=== PATIENT | female | born 1970 | race Caucasian/White ===

== ENCOUNTER → 2020-01-20 09:54 | Outpatient (CLI) | payer BC, SELFPAY ==
--- NOTE | ~2020-01-20 | MM_ITS ---
EXAMINATION: MM screening [facility] [place] BI w sandra HISTORY: Screening mammogram TECHNIQUE: Craniocaudal and mediolateral oblique 3-D tomosynthesis images were obtained and synthetic 2-D images were generated. CAD analysis was submitted and interpreted. COMPARISON: 12/21/2016, 07/01/2015, 09/11/2013, 09/03/2013 BREAST PARENCHYMAL COMPOSITION: There are scattered areas of fibroglandular density. FINDINGS: Scattered benign-appearing calcifications are present. There is no evidence of suspicious m ass, calcification, or architectural distortion to suggest malignancy in either breast. There has bee n no suspicious interval change. IMPRESSION: 1. No mammographic evidence of malignancy. 2. Recommend routine screening mammography in one year. BI-RADS Category 2: Benign finding(s). Reviewed, dictated and finalized at location A.
== END ==
PROVIDERS: Visit Provider Nurse Practitioner Family
DX: Z12.31 Encounter for screening mammogram for malignant neoplasm of breast (principal)
CPT/HCPCS: 77063; 77067

== ENCOUNTER → 2021-03-11 10:11 | Outpatient (CLI) | payer BC, SELFPAY ==
--- NOTE | ~2021-03-11 | MM_ITS ---
EXAMINATION: MM screening [facility] BI w sandra HISTORY: Screening TECHNIQUE: Craniocaudal and mediolateral oblique 3-D tomosynthesis images were obtained and synthetic 2-D images were generated. CAD analysis was submitted and interpreted. COMPARISON: Comparison to multiple prior studies sequentially, with oldest reviewed study dated 06/10. BREAST PARENCHYMAL COMPOSITION: There are scattered areas of fibroglandular density. FINDINGS: There are innumerable benign calcifications in both breasts. There is no evidence of suspic ious mass, calcification, or architectural distortion to suggest malignancy in either breast. There h as been no suspicious interval change. IMPRESSION: 1. No mammographic evidence of malignancy. 2. Recommend routine screening mammography in one year. BI-RADS Category 2: Benign finding(s). Reviewed, dictated and finalized at location A.
== END ==
PROVIDERS: PCP Nurse Practitioner; Visit Provider Nurse Practitioner
DX: Z12.31 Encounter for screening mammogram for malignant neoplasm of breast (principal)
CPT/HCPCS: 77063; 77067

== ENCOUNTER 2022-03-16 12:35 | Emergency (ER) | payer BC, SELFPAY ==
--- NOTE | ~2022-03-16 | CT_ITS ---
EXAMINATION: CT pelvis wo con DATE: 03/16/2022 13:15 INDICATION: Right hip pain post fall TECHNIQUE: High resolution computed tomography (CT) of the pelvis was performed without intravenous c ontrast. Additional sagittal and coronal reconstructions were performed. Automated exposure control a nd iterative reconstruction technique were employed. The dose-length product was 464.50 mGy-cm. COMPARISON: Radiographs dated 10/01/2015 FINDINGS: There is now a noncemented right total hip arthroplasty which appears well seated in near-anatomic al ignment. No fracture or periprosthetic lucency to suggest loosening or infection. Moderate osteoarthr itis at the left hip. No evident hip joint effusions. There is partial ankylosis across the bilateral sacroiliac joints. Is also mild osteitis pubis. Small fat-containing left inguinal hernia. Mild vent ral diastases deep to the umbilicus. Visualized portions of the bowels including the appendix are nor mal. Partially decompressed bladder is unremarkable. There is somewhat nodular contour to the anterio r margin of the fundus of the anteverted uterus suggesting possible uterine fibroids. No free intrape ritoneal fluid in the visualized pelvis. No pathologically enlarged pelvic or inguinal lymphadenopath y. IMPRESSION: 1. Right total hip arthroplasty in near-anatomic alignment. No acute osseous abnormality. Reviewed, dictated and finalized at location A. IMPRESSION: 1. Right total hip arthroplasty in near-anatomic alignment. No acute osseous ab normality.
--- NOTE | ~2022-03-16 | CT_ITS ---
EXAMINATION: CT cervical spine wo con DATE: 03/16/2022 13:15 INDICATION: Head injury. TECHNIQUE: Computed tomography (CT) of the cervical spine was performed without intravenous contrast. Automated exposure control and iterative reconstruction technique were employed. The dose-length pro duct was 367.47 mGy-cm. COMPARISON: None FINDINGS: There is 3 degrees dextrocurvature of cervical spine. There is 2 mm anterolisthesis of C4 o n C5, C5 on C6, and C7 on T1. There is. Vertebral body heights are normal. There is mildly mildly dec reased disc height from C2-C3 through C4-C5. There is severely decreased disc height at C5-C6 with in terbody fusion. There is severely decreased disc height at C6-C7 and moderately decreased disc height at C7-T1. The following disc levels are specifically discussed: C2-C3: There is no uncovertebral joint osteoarthritis. There is moderate right and mild left facet maru int osteoarthritis. There is mild right neural foraminal stenosis. There is no central canal stenosis . C3-C4: There is no uncovertebral joint osteoarthritis. There is severe bilateral facet joint osteoart hritis. There is mild bilateral neural foraminal stenosis. There is mild central canal stenosis. C4-C5: There is mild bilateral uncovertebral joint osteoarthritis. There is severe bilateral facet maru int osteoarthritis. There is mild right and moderate left neural foraminal stenosis. There is mild ce ntral canal stenosis. C5-C6: There is mild right and moderate left uncovertebral joint hypertrophy. There is ankylosis of t he facet joints with moderate hypertrophy. There is mild bilateral neural foraminal stenosis. There i s moderate central canal stenosis. C6-C7: There is severe bilateral uncovertebral joint osteoarthritis. There is mild right and severe l eft facet joint osteoarthritis. There is mild right and moderate left neural foraminal stenosis. Ther e is moderate central canal stenosis. C7-T1: There is mild bilateral uncovertebral joint osteoarthritis. There is severe bilateral facet maru int osteoarthritis. There is mild right and moderate left neural foraminal stenosis. There is mild ce ntral canal stenosis. IMPRESSION: 1. No fracture. 2. Severe cervical spondylosis. Reviewed, dictated and finalized at location A.
--- NOTE | ~2022-03-16 | CT_ITS ---
EXAMINATION: CT brain wo con INDICATION: Head injury COMPARISON: None TECHNIQUE: Standard unenhanced head CT. The dose-length product (DLP) was 681.00 mGy-cm. The mA was a djusted according to patient size. Iterative reconstruction technique was employed. FINDINGS: There is a left frontal scalp hematoma. There is no intracranial hemorrhage, acute infarcti on, or abnormal mass lesion. The ventricles are normal. There is no abnormal mass effect or midline s hift. The sampson-white matter differentiation is normal. The basal cisterns are patent. The orbits are normal. There are widespread calcifications in the skin of the scalp. The paranasal sinuses, mastoids and calvarium are normal. IMPRESSION: 1. Left frontal scalp hematoma without acute intracranial abnormality. Reviewed, dictated and finalized at location B.
--- NOTE | ~2022-03-16 | XR_ITS ---
EXAMINATION: XR chest 1V portable DATE: 03/16/2022 14:07 INDICATION: Dizziness. Fall. TECHNIQUE: frontal view of the chest was obtained. COMPARISON: None FINDINGS: Small calcified nodule at the medial left lung base consistent with old granulomatous disease. No oth er airspace opacities, pulmonary edema, pleural effusion or pneumothorax. The cardiomediastinal silho uette is normal. Subtle dystrophic calcific lesion along the middle facet of the right greater tubero sity suspicious for right infraspinatus calcific tendinitis. IMPRESSION: 1. No acute cardiopulmonary disease. Reviewed, dictated and finalized at location A.
[2022-03-16 12:38] VITALS: BP 139/78; PULSE 81; RESP 18; TEMP 36.6; O2SAT 97
--- NOTE | 2022-03-16 12:44 | ECG_ITS ---
Measurements Intervals [place] Rate: 64 P: 39 NV: 153 QRS: -13 QRSD: 80 T: -21 QT: 375 QTc: 388 Interpretive Statements SINUS RHYTHM BORDERLINE R WAVE PROGRESSION, ANTERIOR LEADS ST-T WAVE ABNORMALITY IN INFERIOR LEADS- CONSIDER ISCHEMIA BASELINE ARTIFACT- II, III, AVF, V6 ABNORMAL ECG NO PREVIOUS ECG AVAILABLE FOR COMPARISON Electronically Signed On 03-16-2022 15:10:31 CDT by Darrick Oliveira D.O.
[2022-03-16] MEDS: ONDANSETRON INJ 4 MG/2 ML VIAL IV PUSH (12:58)
[2022-03-16] MEDS: SODIUM CHLORIDE 0.9% IV 1,000 ML 999 ML IV CONT (13:01)
--- NOTE | 2022-03-16 13:12 | PC.NURSE ---
PT TO CT SCANNER FOR HEAD CT. PT CONTINUES TO REPEAT SELF WITH SAME STATEMENTS SINCE ARRIVAL. I DONT KNOW HOW I DID THIS, I DIDNT PLAN THIS , I HAVE THINGS TO DO TODAY, IM A [employer] . STATES ALL ASSESSMENT QUESTIONS WERE ANSWERED APPROPRIATELY. STATES HAD CONFUSION WHEN HE ORIGINALLY SPOKE WITH HER TO COME PICK HER UP FROM WORK.
--- NOTE | 2022-03-16 13:22 | ED_ITS ---
HPI - Fall General Chief Complaint: Fall Stated Complaint: fell and hit head Time Seen by Provider: 03/16/22 12:37 Source: patient and RN notes reviewed Mode of arrival: ambulatory Limitations: no limitations History of Present Illness complaint: fall (accidental, hitting only her left forehead. no acute chest pain, dizziness or SOB.) Onset (ago): minute(s) (30) Fall from: standing Place fall occurred: street Loss of consciousness: none Prolonged down time: no Symptoms prior to fall: none Context: tripped/slipped Location of injury: head Severity: mild Severity scale (1-10): 6 Quality: dull and aching Associated symptoms (after fall): headache Related Data Home Medications Medication Instructions Recorded Confirmed cholecalciferol (vitamin D3) 50 2,000 unit PO DAILY 08/09/19 03/16/22 mcg (2,000 unit) capsule Allergies Allergy/AdvReac Type Severity Reaction Status Date / Time NKA Allergy Unknown Unknown Uncoded 04/23/21 10:26 Review of Systems Review of Systems: All systems reviewed & are unremarkable except as noted in HPI and below Constitutional: Constitutional: Reports no additional constitutional complaints Eyes: Eyes: Reports no additional eye complaints ENT: Reports system reviewed and no additional complaints, except as documented Cardiovascular: Cardiovascular: Reports no additional cardiovascular complaints Respiratory: Respiratory: Reports no additional respiratory complaints Gastrointestinal: Gastrointestinal: Reports no additional gastrointestinal complaints Genitourinary: Genitourinary: Reports no additional female genitourinary complaints Musculoskeletal: Musculoskeletal: Reports no additional musculoskeletal complaints Integumentary/Breasts: Skin/Breast: Reports system reviewed and no additional complaints, except as docu Neurologic: Reports system reviewed and no additional complaints, except as documented and Reports headache(s) Psychiatric: Psychiatric: Reports no additional psychiatric complaints Endocrine: Endocrine: Reports no additional endocrine complaints Hematologic/Lymphatic: Hematologic/Lymphatic: Reports no additional hematologic/lymphatic complaints Allergic/Immunologic: Allergic/Immunologic: Reports no additional allergic/immunologic complaints [facility] Past Medical History Medical History Essential (primary) hypertension Fall Head injury Hyperlipidemia Laceration of eyebrow and forehead Vitamin D deficiency Family History Family History Father Family history of cardiovascular disease Mother Family history of cardiovascular disease Other Family history of arthritis Family history of malignant neoplasm Family history of mental disorder Hypertension Social History Social History Smoking status: Never smoker Alcohol intake: never Exam Const: General: alert Nutritional Appearance: well nourished Orientation/consciousness: patient oriented x3 Limitations: no limitations Other: mild essential
[2022-03-16 13:29] LABS: Basophils Absolute Auto 0.05 K/mm3 (0.00-0.10); Basophils Percent Auto 0.3 % (0.0-1.0); Eosinophils Absolute Auto 0.11 K/mm3 (0.02-0.50); Eosinophils Percent Auto 0.8 % (1.0-6.0); Hematocrit 39.5 % (35.0-49.0); Hemoglobin 13.4 g/dL (12.0-15.0); Immature Granulocyte Absolute 0.08 K/mm3 (0.00-0.00); Immature Granulocyte Percent A 0.6 % (0.0-0.0); Lymphocytes Percent Auto 12.4 % (18.0-42.0); Mean Corpuscular HGB Conc 33.9 g/dL (32.0-36.0); Mean Corpuscular Hemoglobin 30.1 pg (27.0-31.0); Mean Corpuscular Volume 88.8 fL (78.0-102.0); Mean Platelet Volume 10.8 fl (9.2-11.8); Monocytes Absolute Auto 0.89 K/mm3 (0.10-0.90); Monocytes Percent Auto 6.1 % (2.0-11.0); Neutrophils Absolute Auto 11.6 K/mm3 (1.7-7.2); Neutrophils Percent Auto 79.8 % (50.0-70.0); Platelet Count Result 200 K/mm3 (150-420); Red Blood Count 4.45 M/mm3 (4.20-5.40); Red Cell Distribution Width 12.8 % (11.6-14.4); White Blood Count 14.5 K/mm3 (4.8-10.8)
[2022-03-16] MEDS: ACETAMINOPHEN 325 MG TABLET 650 MG PO (13:40)
[2022-03-16 13:49] LABS: Lactic Acid Reflex 1.8 mmol/L (0.4-2.0)
[2022-03-16 13:58] LABS: Alanine Aminotransferase 20 U/L (14-59); Albumin Level 3.8 g/dL (3.4-5.0); Alkaline Phosphatase 66 U/L (46-116); Anion Gap 11 mmol/L (8-16); Aspartate Amino Transferase 18 U/L (15-37); Bilirubin,Total 0.8 mg/dL (0.00-1.00); Blood Urea Nitrogen 22 mg/dL (7-18); Calcium 9.2 mg/dL (8.5-10.1); Carbon Dioxide 28 mmol/L (21-32); Chloride 99 mmol/L (98-108); Estimated Glomerular Filt Rate 57; Glucose 91 mg/dL (70-99); Osmolality Calculated 289 mOsm/kg (285-295); Potassium 3.4 mmol/L (3.5-5.1); Sodium 138 mmol/L (136-145); Total Protein 7.4 g/dL (6.4-8.2); Troponin I 4.7 ng/L (0.00-60.4)
[2022-03-16 14:00] LABS: Add Urine Microscopic? YES; Appearance Urine Clear (Clear); Bilirubin Urine Negative (Negative); Blood Urine Negative (Negative); Color Urine Light Yellow (Yellow); Glucose Urine UA Negative (Negative); Ketones Urine Negative (Negative); Leukocyte Esterase Ur Trace (Negative); Nitrate Urine Negative (Negative); Protein Urine Negative (Negative); Specific Grav Ur 1.015 (1.010-1.020); Urobilinogen Urine 0.2 mg/dL (0.2-1.0)
[2022-03-16 14:05] LABS: RBC Urine None seen /hpf (0-2); Squamous Epithelial Cell Urine Moderate /hpf (Few); WBC Urine 0-3 /hpf (0-3)
[2022-03-16 14:06] LABS: Bacteria Urine Trace /hpf
[2022-03-16] MEDS: LIDOCAINE HCL 2% PF INJ 5 ML VIAL 2 ML INFILTRATE (14:15)
[2022-03-16 14:45] VITALS: BP 161/92; PULSE 62; RESP 20; TEMP 36.3; O2SAT 98
[2022-03-16] MEDS: NEOMYCIN/POLYMYXIN/BACITRACIN OINTMENT PACKET 1 PACKET TOPICAL (14:53)
== END 2022-03-16 14:59 | disposition home or self-care (01) ==
PROVIDERS: Emergency Provider Emergency Medicine; PCP Family Medicine
DX: S09.90XA Unspecified injury of head, initial encounter (principal); S01.81XA Laceration without foreign body of other part of head, initial encounter; N39.0 Urinary tract infection, site not specified; W19.XXXA Unspecified fall, initial encounter
CPT/HCPCS: 12011; 36415; 70450; 71045; 72125; 72192; 80053; 81001; 83605; 84484; 85025; 93005; 96365; 96375; 99284; A9270; J0696; J2405; J7030; L0150

== ENCOUNTER 2022-03-22 17:19 | Outpatient (CLI) | payer BC, SELFPAY ==
--- NOTE | ~2022-03-22 | XR_ITS ---
EXAMINATION: XR facial bones min 3V INDICATION: Head injury TECHNIQUE: Four views of the facial bones are obtained on six radiographs. COMPARISON: CT, 03/16/2022 FINDINGS: The previously described frontal scalp hematoma persists but is decreased. No facial fractu re is identified. The paranasal sinuses are well aerated. IMPRESSION: 1. Frontal scalp hematoma with improvement. No facial fracture identified. Reviewed, dictated and finalized at location B.
== END 2022-03-22 17:20 | disposition home or self-care (01) ==
LOC: ANHIMG 17:22
PROVIDERS: PCP Family Medicine; Visit Provider Nurse Practitioner
DX: S09.90XA Unspecified injury of head, initial encounter (principal); S00.83XA Contusion of other part of head, initial encounter; X58.XXXA Exposure to other specified factors, initial encounter
CPT/HCPCS: 70150

== ENCOUNTER 2024-05-27 11:32 | Outpatient (CLI) | payer BC, SELFPAY ==
--- NOTE | ~2024-05-27 | MM_ITS ---
EXAMINATION: MM screening [facility] BI w sandra HISTORY: Screening mammogram TECHNIQUE: Craniocaudal and mediolateral oblique 3-D tomosynthesis images were obtained and synthetic 2-D images were generated. CAD analysis was submitted and interpreted. COMPARISON: 03/11/2021, 01/20/2020 BREAST PARENCHYMAL COMPOSITION:Not Dense. There are scattered areas of fibroglandular density. FINDINGS: Extensive bilateral benign calcifications are again present. No suspicious mass, calcificat ion, or architectural distortion are identified in either breast to suggest malignancy. There has bee n no suspicious interval change. IMPRESSION: No mammographic evidence of malignancy. Recommend routine screening mammography in one year. BI-RADS Category 2: Benign finding(s). Reviewed, dictated and finalized at location . 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
== END 2024-05-27 11:33 | disposition home or self-care (01) ==
LOC: MICIMG 11:32
PROVIDERS: PCP Family Medicine; Visit Provider Family Medicine
DX: Z12.31 Encounter for screening mammogram for malignant neoplasm of breast (principal)
CPT/HCPCS: 77063; 77067

== ENCOUNTER 2025-05-30 10:12 | Outpatient (CLI) | payer BC, SELFPAY ==
--- NOTE | ~2025-05-30 | MM_ITS ---
EXAMINATION: MM screening [facility] BI w sandra HISTORY: Screening TECHNIQUE: Craniocaudal and mediolateral oblique 3-D tomosynthesis images were obtained and synthetic 2-D images were generated. CAD analysis was submitted and interpreted. COMPARISON: Comparison to multiple prior studies sequentially, with oldest reviewed study dated 07/01/2015. BREAST PARENCHYMAL COMPOSITION: Not dense: There are scattered areas of fibroglandular density. FINDINGS: Extensive benign bilateral breast calcifications are stable. There is no evidence of suspicious mass, calcification, or architectural distortion to suggest malignancy in either breast. There has been no suspicious interval change. IMPRESSION: 1. No mammographic evidence of malignancy. 2. Recommend routine screening mammography in one year. BI-RADS Category 2: Benign finding(s). Reviewed, dictated and finalized at location O. 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
== END 2025-05-30 10:13 | disposition home or self-care (01) ==
LOC: MICIMG 10:13
PROVIDERS: PCP Family Medicine; Visit Provider Family Medicine
DX: Z12.31 Encounter for screening mammogram for malignant neoplasm of breast (principal)
CPT/HCPCS: 77063; 77067